=== PATIENT | male | born 1980 | race Caucasian/White ===

== ENCOUNTER 2024-06-27 11:14 | Emergency (ER) | payer OTHER, BC, SELFPAY ==
[2024-06-27 12:03] LABS: % Basophils 0.3 % (0-2); % Eosinophils 1.3 % (0-6); % Immature Granulocytes 0.3 % (0-0.5); % Lymphocytes 21.4 % (20.5-51.1); % Monocytes 8.4 % (1.7-9.3); % Neutrophils 68.3 % (42.2-75.2); Absolute Eosinophils 0.2 10^3/uL (0-0.7); Absolute Lymphocytes 2.4 10^3/uL (1.2-3.4); Absolute Monocytes 0.9 10^3/uL (0.1-0.6); Absolute Neutrophils 7.6 10^3/uL (1.4-6.5); Hematocrit 43.4 % (39.0-52.0); Hemoglobin 14.8 g/dL (13.0-18.0); Mean Corp Hgb Conc. 34.1 g/dL (33.0-37.0); Mean Corpuscular Hgb 31.2 pg (27.0-31.0); Mean Corpuscular Volume 91.6 fL (80.0-94.0); Mean Platelet Volume 8.9 fL (7.4-10.4); Nucleated Red Blood Cells % 0 % (-); Platelet Count 266 10^3/uL (130-400); Red Blood Cell Count 4.74 10^6/uL (4.70-6.10); Red Cell Dist. Width 13.2 % (11.5-14.5); White Blood Cell Count 11.1 10^3/uL (4.8-10.8)
[2024-06-27 12:04] VITALS: BP 142/96
[2024-06-27 12:10] LABS: ALT (SGPT) 23 U/L (0-50); AST (SGOT) 21 U/L (17-59); Albumin 4.4 g/dl (3.5-5.0); Alkaline Phosphatase 88 U/L (38-126); Blood Urea Nitrogen 12 mg/dl (9-20); Carbon Dioxide 30 mmol/L (22-30); Chloride 103 mmol/L (98-107); Glucose 133 mg/dl (70-99); Potassium 4.3 mmol/L (3.5-5.1); Sodium 141 mmol/L (135-145); Total Bilirubin 1.1 mg/dl (0.2-1.3); Total Protein 6.9 g/dl (6.3-8.2); eGFR > 60.00
--- NOTE | 2024-06-27 13:19 | ED.GENMED ---
History of Present Illness
General
Chief Complaint: Facial Problem
Source: patient
Exam Limitations: none
Time Seen by Provider: 06/27/24 13:19
Nursing documentation reviewed up to this point in time: agreed with
History of Present Illness
History of Present Illness:
This is a 43-year-old male with past medical history of ADHD presents emergency department today with concerns of left eye pain and pressure behind his left eye. He also has left temporal pain. He denies any visual changes any visual loss. He
denies any blurry vision. He denies any nausea or vomiting. This started acutely last night. He also states that he has associated sinus congestion. He denies any trauma to the eye or the face. He states that 2 days ago, he was working on his
car when he splashed some coolant into his eye accidentally but denies any redness or burning sensation. He states that symptoms 1 when he went to bed but then when he woke up this morning he noticed that the symptoms are still present. He denies
any head or neck trauma. He denies any eyelid drooping but does note that he had lacrimation from the left nare only while the pain was occurring. He denies any chest pain or shortness of breath. He does not wear contacts of he denies any history
of eye problems. He states that the pain is constant with intermittent bouts of sharp pain. He did take ibuprofen without relief.
Review of Systems
Review of Systems
All Other Systems: ROS reviewed and negative except as documented in HPI and ROS
Phy Exam
Physical Exam
Physical Exam:
General: Patient is well appearing and in no acute distress; non-toxic
Skin: Warm and dry, no rashes or lesions
Head: Normocephalic, atraumatic. No tenderness palpation of the left temporal regions. No tenderness to palpation under the eyes. TMJ joints intact bilaterally. No tenderness palpation over the frontal and maxillary sinuses.
Eyes: Sclera non-icteric. No scleral injection bilaterally. EOMs intact. Left eye (affected eye) pressure 14 mmHg, right eye 13 mmHg. No corneal abrasion with fluorescein staining.
Cardiac: Regular rate and rhythm, no murmur
Peripheral Vascular: No lower extremity swelling or edema
Pulm: Normal respiratory effort, no wheezes, rales, rhonchi
Neuro: CN II-XII intact, no focal neurologic deficits. Normal [id number], normal finger-nose testing
Psychiatric: Appropriate mood and affect.
Course
Orders/Labs/Results
Orders:
Orders
06/27/24 11:48
Complete Blood Count/With Diff Urgent
Comprehensive Metabolic Panel Urgent
06/27/24 13:27
Fluorescein Sodium [Ful-Tracy] 1 mg .ROUTE .STK-MED ONE
Tetracaine HCl [Tetracaine 0.5% Ophthalmic Solution] 1 drop .ROUTE .STK-MED ONE
06/27/24 13:37
CT Head W/o Iv Contrast Urgent
Comment:
Reason For Exam: left temporal pain, left eye pressure
IV Insert/Care/Rem.- Treatment PRN
Diphenhydramine [Benadryl] 12.5 mg IV NOW STA
Ketorolac [Toradol] 15 mg IV NOW STA
Metoclopramide [Reglan] 10 mg IV NOW STA
06/27/24 17:24
Ketorolac [Toradol] 30 mg IM NOW STA
Abnormal Lab Results
06/27/24
11:48
WBC 11.1 H 10^3/uL
(4.8-10.8)
MCH 31.2 H pg
(27.0-31.0)
Absolute Neuts (auto) 7.6 H 10^3/uL
(1.4-6.5)
Absolute Monos (auto) 0.9 H 10^3/uL
(0.1-0.6)
Glucose 133 H mg/dl
(70-99)
06/27/24 11:48
06/27/24 11:48
Vital Signs
Initial and Last Documented VS:
Initial Vital Signs
Temp Pulse Resp Pulse Ox
98.3 F 85 16 98
06/27/24 11:20 06/27/24 11:20 06/27/24 11:20 06/27/24 11:20
Last Documented Vital Signs
Temp Pulse Resp BP Pulse Ox
98.2 F 65 17 132/90 100
06/27/24 17:51 06/27/24 17:23 06/27/24 17:23 06/27/24 17:23 06/27/24 17:23
MDM/Problems Addressed
Differential Diagnosis Includes:
Differentials include cluster headache, migraine headache, tension headache, ocular migraine, corneal abrasion, acute glaucoma, chemical eye injury, ocular foreign body
MDM/Problems Addressed:
43-year-old male presents emergency department today with concerns of left eye pain and left temporal pain. Denies any injury to the eye or visual loss or visual changes. He feels like there is pressure behind his eye. He is never had any
symptoms like this before is no history of headaches. On physical exam, there is no scleral injection bilaterally he has no tenderness palpation of the left orbit. There is no overlying rash or erythema. His pupils are equal round and reactive
bilaterally and his EOMs are intact. No ptosis. He has no focal neurologic deficits. His symptoms improved with migraine cocktail. His headache started to return but less severe than earlier and he was given another dose of Toradol. Considering
change in character never having headache with this before, patient was sent for CAT scan which was negative for any acute intracranial abnormality. Patient was stained and there is no evidence of corneal abrasion, pressures and eye normal
bilaterally. In light of one-sided pain behind the eye and lacrimation from the left eye in conjunction with sudden onset of severe pain, suspect suspect cluster headache or migraine headache. Patient stable for discharge. Recommended follow-up
with ophthalmology or neurology. Patient stable for discharge.
Chronic conditions affecting care:
n/a
Acute Exacerbation and/or Progression of Chronic Illness:
n/a
*Pulse Oximetry
Patient hypoxic: no
*Critical Care Note
Total Time (30-74mins, 75-104mins- exclusive of procedures): Not Applicable
Data Reviewed
Review of Other/Old Records Reveals: Records (Reviewed [facility], no previous ER physician documentation or discharge summaries for review )
Source: patient and records
Patient Management
Escalation/DeEscalation of care consider admission/obs:
admit not indicated
case reviewed with my attending
ED Attending Note
-
Portions of this chart may have been created with voice recognition software.� Occasional wrong word or��sound alike� substitutions may have occurred due to the inherent limitations of voice recognition software.
Discharge Plan
Departure
Patient Disposition: Home (Routine Discharge)
Date of Disposition: 06/27/24
Time of Disposition: 17:32
Patient with high blood pressure during this ER visit?: Yes
Discharge Problem:
Cluster headache
Instructions: Cluster Headache (DC), BLOOD PRESSURE
Referrals:
Shmuel Jaquez MD [Active] -
Darien Aceves MD [Family Provider] -
Activity Restrictions/Additional Instructions:
Your symptoms are most suspicious for migraine headache vs cluster headache. I recommend following up with a neurologist and barrel rifler broach for further evaluation of your symptoms.
Your CAT scan of the head was negative for any acute intracranial abnormality, no evidence of sinus disease.
PLEASE RETURN TO THE EMERGENCY DEPARTMENT SHOULD YOU DEVELOP CHEST PAIN, SHORTNESS OF BREATH, VISUAL LOSS, BLURRY VISION, INTRACTABLE HEADACHES, INTRACTABLE NAUSEA OR VOMITING, NECK PAIN AND DIZZINESS, SYNCOPAL EPISODES, OR ANY OTHER SIGNS OR
SYMPTOMS WORRISOME TO YOU.
Interventions
Interventions:
*Risk Screen - Suicide Last Done: 06/27/24 11:20
*Neglect/Abuse Screening Last Done: 06/27/24 11:20
ED- Fall Risk Assessment Last Done: 06/27/24 17:51
*Nursing Disposition Last Done: 06/27/24 17:51
ED- Neurological Assessment Last Done: 06/27/24 13:50
ED-Skin Assessment Last Done: 06/27/24 15:09
Discharge Date and Time
Discharge Date/Time: 06/27/24 17:52
Print Language: ALBANIAN
[2024-06-27] MEDS: REGLAN 10 MG IV (14:05)
[2024-06-27] MEDS: BENADRYL 12.5 MG IV (14:06)
[2024-06-27] MEDS: TORADOL 15 MG IV (14:06)
[2024-06-27 17:23] VITALS: BP 132/90
[2024-06-27] MEDS: TORADOL 15 MG IM (17:33)
== END 2024-06-27 17:52 | disposition home or self-care (01) ==
LOC: EMR 11:14
PROVIDERS: EMERGENCY PHYSICIAN Emergency Medicine; FAMILY PHYSICIAN Family Medicine
DX: G44.009 Cluster headache syndrome, unspecified, not intractable (principal); H57.12 Ocular pain, left eye; H57.89 Other specified disorders of eye and adnexa; R09.81 Nasal congestion; X58.XXXA Exposure to other specified factors, initial encounter; R03.0 Elevated blood-pressure reading, without diagnosis of hypertension; F90.9 Attention-deficit hyperactivity disorder, unspecified type
CPT/HCPCS: 99284; 96374; 96375 ×2; 96372; 70450; 80053; 85025